=== PATIENT | female | born 1955 | race Caucasian/White ===

== ENCOUNTER 2016-09-27 07:24 | Day surgery (SDC) | payer OTHER ==
[2016-09-15 12:06] LABS: BASOPHILS 0.5 %; BASOPHILS ABSOLUTE 0.03 10/3/uL (0.0-0.16); EOSINOPHILS 2.4 %; EOSINOPHILS ABSOLUTE 0.15 10/3/uL (0.0-0.53); HEMATOCRIT 31.4 % (36.0-48.0); HEMOGLOBIN 10.6 g/dL (12.0-16.0); IMMATURE GRANULOCYTES 0.2 %; IMMATURE GRANULOCYTES ABSOLUTE 0.01 10/3/uL (0.0-0.11); LYMPHOCYTES ABSOLUTE 0.96 10/3/uL (0.67-4.30); MANUAL DIFF NO %; MEAN CORPUS HGB CONC 33.8 g/dL (32.0-36.0); MEAN CORPUSCULAR HEMOGLOB 33.3 pg (26.0-34.0); MEAN CORPUSCULAR VOLUME 98.7 fL (80-100); MEAN PLATELET VOLUME 11.1 fL (9.2-13.0); MONOCYTES 8.2 %; MONOCYTES ABSOLUTE 0.52 10/3/uL (0.21-1.20); NEUTROPHILS 73.7 %; NEUTROPHILS ABSOLUTE 4.71 10/3/uL (2.02-8.40); PLATELET COUNT 171 10/3/uL (150-400); RBC DISTRIBUTION WIDTH 14.7 % (12.0-16.0); RED CELL COUNT 3.18 10/6/uL (4.0-5.6); WHITE BLOOD CELLS 6.4 10/3/uL (4.5-10.5)
[2016-09-15 12:17] LABS: CALCIUM, SERUM 8.8 MG/DL (8.5-10.4); CHLORIDE, SERUM 100 MMOL/L (96-112); CO2 (CARBON DIOXIDE) 22 MMOL/L (24-34); CREATININE 1.37 MG/DL (0.55-1.02); GFR AFRICAN AMERICAN 48 ML/MIN (>=60); GFR NON AFRICAN AMERICAN 41 ML/MIN (>=60); GLUCOSE, SERUM 224 MG/DL (60-99); POTASSIUM, SERUM 4.3 MMOL/L (3.5-5.3); SODIUM, SERUM 136 MMOL/L (135-148)
[2016-09-15 12:18] LABS: BUN (BLOOD UREA NITROGEN) 14 MG/DL (6-23)
--- NOTE | ~2016-09-27 | OP ---
Record Of Operation [facility] [address] [place]. [address] NAME: TERESA HAILE : 53 STATUS : [place] [facility] [place] PAT#: [id number] AGE: 61 ADM/REG DATE : 09/27/16 MR#: [id number] REPORT SERV DATE: 09/27/16 DICTATED BY: FARHAN MATA DATE: 09/27/16 REPORT STATUS : Draft TRANSCRIBED BY: MODL DATE: 09/27/16 DATE OF PROCEDURE: 09/27/2016 PREOPERATIVE DIAGNOSIS: Lifestyle-limiting claudication, right leg. POSTOPERATIVE DIAGNOSIS: Lifestyle-limiting claudication, right leg. PROCEDURE: 1. Aortogram with right leg runoff. 2. Angioplasty, right SFA with drug coated balloon. 3. Angioplasty, right common iliac artery. SURGEON: Farhan Mata M.D. ANESTHESIA: Local with sedation. COMPLICATIONS: None. ESTIMATED BLOOD LOSS: 10 mL. HISTORY: The patient is a 61-year-old female, with lifestyle limiting claudication, right leg. An MAGALIE of 0.8. So, she would benefit from arteriogram with intervention. This was discussed in detail with the patient, she expressed understanding and desired to proceed. DESCRIPTION OF PROCEDURE: The patient was taken to the operating room and placed in the supine position. She was given IV sedation without complication. Both groins were prepped and draped in sterile fashion. Ultrasound was used to identify the common femoral on the left. Lidocaine 1% was infiltrated in the skin and subcutaneous tissues. Under ultrasound guidance, an 18-gauge needle was placed in the common femoral artery. Wire was passed into the aorta, which was confirmed with fluoroscopy. The needle was removed. A 5-Yi sheath was placed. UF catheter was passed with the wire in the aorta. Aortogram shows a patent aorta with single renal arteries bilaterally. The left renal artery was widely patent. The right has mild origin stenosis. The iliac arteries were patent with what appears to be a 50% stenosis at the origin of the right. The left common internal and external were widely patent. The right external and internal were patent. A wire was placed in the catheter. Catheter was guided over the wire into the external iliac artery on the right. Arteriogram shows a patent common femoral, profunda femoral, and superficial femoral artery with a 50% stenosis in the proximal portion. There was a high grade stenosis of at least 60% to 70% tandem lesions at the SFA distally. The popliteal artery was patent above and below the knee. Runoff via the peroneal artery to the ankle with occlusion of the anterior tibial and posterior tibial arteries throughout the lower leg. There was a collateral filling of both the distal AT and PT via the peroneal artery on the foot. The patient was given 4000 units of heparin intravenously. Wire was guided in the SFA. Sheath was exchanged for a 6 x 45 sheath. The Glidewire and jay, two catheter were used across the stenosis in the distal SFA. Arteriogram in the popliteal artery with the catheter showed that the popliteal artery to be patent as was the peroneal artery. A 4 x 150 balloon was used to angioplasty the Record Of Operation [address] [place]. [address] NAME: TERESA HAILE : 53 STATUS : [place] [facility] [place] PAT#: [id number] AGE: 61 ADM/REG DATE : 09/27/16 MR#: [id number] REPORT SERV DATE: 09/27/16 DICTATED BY: FARHAN MATA DATE: 09/27/16 REPORT STATUS : Draft TRANSCRIBED BY: LAILA DATE: 09/27/16 superficial femoral artery at the areas of stenosis distally. This was then angioplastied with a 5 mm x 120 mm drug-coated balloon which was left inflated for 3 minutes. The 5 mm balloon was then used to angioplasty the mid and proximal superficial femoral artery. Post arteriogram shows superficial femoral artery to be widely patent with no residual stenosis. Attention of the right common iliac artery and arteriogram showed a least a 50% stenosis. This was angioplastied with a 9 x 40 balloon. Post arteriogram shows what appears to be widely patent common iliac artery on the right with still some poststenotic dilatation. This was felt to be an excellent result. The sheath was removed and access was closed with StarClose device without difficulty. The patient tolerated well. She was taken to the recovery room in stable condition. ESTRADA/LAILA Farhan Mata M.D. / [id number] CC: Farhan Mata M.D.
[~2016-09-27 07:24] MED LIST: AMARYL2 PO; ASAB PO; BEN25 PO; CREON DR 36,001 EACH PO; IMDUR30 PO; KLONO1 PO; LOM PO; LOP50 PO; METANX PO; NITROSTAT0.4 MG SL; NORV10 PO; NOVOLOG SC; NOVOLOGMIX SC; PEP20 PO; PLAVIX PO; PROAIR HFA INH; PROTONIX PO; SPIRIVA RESPIMAT INH; TRAZODONE150 MG PO; TRAZODONE300 MG PO; VASOTEC20 MG PO; VITAMIN D1000 UNI1 PO; WELLSR150 PO
== END 2016-09-27 13:39 | disposition home or self-care (01) ==
LOC: SDC 07:24 → SSU1 10:40
PROVIDERS: Surgery
PROC: 047K3Z1 Dilation of Right Femoral Artery using Drug-Coated Balloon, Percutaneous Approach (ICD-10-PCS; principal; 2016-09-27 08:45)
PROC: 047C3ZZ Dilation of Right Common Iliac Artery, Percutaneous Approach (ICD-10-PCS; 2016-09-27 08:45)
DX: I73.9 Peripheral vascular disease, unspecified (principal); E11.40 Type 2 diabetes mellitus with diabetic neuropathy, unspecified; E11.22 Type 2 diabetes mellitus with diabetic chronic kidney disease; I12.9 Hypertensive chronic kidney disease with stage 1 through stage 4 chronic kidney disease, or unspecified chronic kidney disease; N18.3 Chronic kidney disease, stage 3 (moderate); I25.10 Atherosclerotic heart disease of native coronary artery without angina pectoris; E78.00 Pure hypercholesterolemia, unspecified; M19.90 Unspecified osteoarthritis, unspecified site; K85.90 Acute pancreatitis without necrosis or infection, unspecified; J44.9 Chronic obstructive pulmonary disease, unspecified; F32.9 Major depressive disorder, single episode, unspecified; F41.9 Anxiety disorder, unspecified; D64.9 Anemia, unspecified; Z87.891 Personal history of nicotine dependence; Z95.5 Presence of coronary angioplasty implant and graft; Z85.118 Personal history of other malignant neoplasm of bronchus and lung; Z92.21 Personal history of antineoplastic chemotherapy; Z90.710 Acquired absence of both cervix and uterus; Z90.49 Acquired absence of other specified parts of digestive tract; Z88.8 Allergy status to other drugs, medicaments and biological substances; Z88.5 Allergy status to narcotic agent; Z88.6 Allergy status to analgesic agent; Z79.4 Long term (current) use of insulin; Z79.82 Long term (current) use of aspirin; Z79.02 Long term (current) use of antithrombotics/antiplatelets; Z79.899 Other long term (current) drug therapy; Z98.890 Other specified postprocedural states
CPT/HCPCS: 37220; 37224; 75625; 75710; 80048; 82962; 85025; 93005; C1725 ×2; C1769 ×2; C1894 ×2; C2623; J0690; J2250; J2370; J3010; Q9967; A9270-GY